=== PATIENT | female | born 1965 | race Asian ===

== ENCOUNTER 2018-07-31 08:09 | Emergency (ER) | payer BC ==
[~2018-07-31] VITALS: Ht 152.4 cm; Wt 81.6 kg
--- NOTE | 2018-07-31 10:00 | ED EENT ---
History of Present Illness General Chief Complaint: Facial Problems Stated Complaint: FACIAL NUMBNESS Nursing Triage Note: PT PRESENTS TO ED WITH COMPLAINTS OF R SIDE FACIAL NUMBNESS AND DROOPING SINCE LAST NIGHT. PT ALSO REPORTS SHE HAS HAD PAIN BEHIND HER R EAR INTERMITTENTLY X2 WEEKS. PT DENIES ANY OTHER S/S. Source: patient Exam Limitations: no limitations History of Present Illness Date Seen by Provider: Jul 31, 2018 Time Seen by Provider: 09:55 Initial Comments The patient is a 52-year-old female of descent. She reports that for about 2 weeks she has had pain in her right mastoid area. Last night she noted a funny sensation in the right side of her face and drooping. This morning this sensation is greater. She also reports that she wears contact lenses and has burning of her eyes. Timing/Duration: gradual Location: eye (R), facial (right sided) Allergies and Home Medications Allergies Coded Allergies: No Known Drug Allergies (Unverified , 07/31/18) Home Medications No Active Prescriptions or Reported Meds Patient Home Medication List Home Medication List Reviewed: Yes Review of Systems Review of Systems Constitutional: see HPI Eyes: Other (burning and tears) Nose: no symptoms reported Mouth: other (right side of face and mouth feels as if she had been to the dentist) Throat: no symptoms reported Respiratory: no symptoms reported Cardiovascular: no symptoms reported Musculoskeletal: no symptoms reported Skin: no symptoms reported Neurological: See HPI Hematologic/Lymphatic: No Symptoms Reported Immunological/Allergic: no symptoms reported Past Pbgtqqf-Sezpmr-Oufcyt Hx Patient Social History Alcohol Use: Denies Use Recreational Drug Use: No Smoking Status: Never a Smoker Recent Foreign Travel: No Contact w/Someone Who Travel: No Recent Infectious Disease Expo: No Recent Hopitalizations: No Physical Abuse: No Sexual Abuse: No Mistreated: No Fear: No Seasonal Allergies Seasonal Allergies: No Past Medical History Surgeries: Yes (R/L WRIST CARPAL TUNNEL) Respiratory: No Cardiac: No Neurological: No Genitourinary: No Gastrointestinal: No Musculoskeletal: No Endocrine: No HEENT: No Cancer: No Psychosocial: No Blood Disorders: No Physical Exam Vital Signs Vital Signs - First Documented 07/31/18 08:21 Temp 98.4 Pulse 112 Resp 18 B/P (MAP) 152/98 (116) Pulse Ox 97 Height, Weight, BMI Height: 5'" Weight: 180lbs. oz. 81.051279jq; BMI Method:Stated General Appearance: no apparent distress Nose: normal inspection Mouth/Throat: normal mouth inspection, pharynx normal, dental tenderness, excessive drooling, foreign body, mandibular swelling Cardiovascular: normal peripheral pulses, regular rate, rhythm, no edema, no gallop, no JVD, no murmur Respiratory: chest non-tender, lungs clear, normal breath sounds, no respiratory distress, no accessory muscle use There is effacement of the right nasolabial fold. When asked to smile there is no movement of the right corner of the mouth. When asked to furrow the brow is minimal furrowIng of the right brow. There is some tenderness to palpation over the right mastoid. The right eye is droopy although still appropriate relative to the pupil. She is unable to completely occlude the lids Progress/Results/Core Measures Results/Orders Vital Signs/I&O 07/31/18 08:21 Temp 98.4 Pulse 112 Resp 18 B/P (MAP) 152/98 (116) Pulse Ox 97 Blood Pressure Mean: 116 Departure Communication (Admissions) The usual issues of Rogel's palsy were described to the patient and her . She is advised to get gum cellulose eyedrops and to use an eye patch at bedtime. She will be given a shot of Solu-Medrol here and a prescription for steroids to fill tomorrow. Impression Primary Impression: right sided Rogel's palsy Disposition: 01 HOME, SELF-CARE Condition: Stable/Unchanged Departure-Patient Inst. Decision time for Depature: 10:00 Referrals: NO,LOCAL PHYSICIAN (PCP) Primary Care Physician Add. Discharge Instructions: All discharge instructions reviewed with patient and/or family. Voiced understanding. Obtain gum cellulose eyedrops and use at bedtime and when necessary. Fashion an eye patch for nighttime use. Take cortisone as prescribed. Follow-up with an outpatient provider in 10-14 days. Scripts Prednisone (Prednisone) 20 Mg Tab 20 MG PO each a.m., #10 TAB Prov: ANITA GUILLAUME MD 07/31/18 ANITA GUILLAUME MD Jul 31, 2018 10:00
[2018-07-31] MEDS ORDERED: PRD20T PO (10:03)
[2018-07-31] MEDS ORDERED: methylPREDNISolone 125 MG (Solu-MEDROL) VIAL IM ONE (10:15)
[2018-07-31 10:44] VITALS: BP 123/74
== END 2018-07-31 10:44 | disposition home or self-care (01) ==
LOC: ER 08:12
DX: G51.0 Bell's palsy (principal)
CPT/HCPCS: 99284

== ENCOUNTER 2022-07-15 00:09 | Emergency (ER) | payer OTHER ==
[~2022-07-15] VITALS: Ht 152.4 cm; Wt 89.0 kg
[~2022-07-15 00:09] MED LIST: PRD20T PO
[2022-07-15 01:00] LABS: TOTAL PROTEIN 7.2 GM/DL (6.4-8.2)
[2022-07-15 01:01] LABS: BILIRUBIN,TOTAL 0.6 MG/DL (0.1-1.0)
[2022-07-15 01:03] LABS: CREATININE SERUM 0.83 MG/DL (0.60-1.30)
[2022-07-15 01:06] LABS: MAGNESIUM 1.7 MG/DL (1.6-2.4)
[2022-07-15 01:14] LABS: CREATINE KINASE MB 1.9 NG/ML (<6.6)
[2022-07-15 01:18] LABS: FIBRIN DEGRADATION PRODUCTS 0.21 UG/ML (0.00-0.49); INR 0.9 (0.8-1.4); PROTHROMBIN TIME PATIENT 12.5 SEC (12.2-14.7)
[2022-07-15 01:19] LABS: ERYTHROCYTE SEDIMENTATION RATE 4 MM/HR (0-30)
[2022-07-15 01:27] LABS: TSH (THYROID ANALYZER) 3.79 UIU/ML (0.35-4.94)
[2022-07-15] MEDS ORDERED: hydrALAZINE (APESOLINE) 20 MG/ML VIAL IV ONE (01:30)
[2022-07-15 01:49] LABS: BASOPHILS # (AUTO) 0.1 10^3/uL (0.0-0.1); BASOPHILS % (AUTO) 1 % (0-10); EOSINOPHILS # (AUTO) 0.2 10^3/uL (0.0-0.3); EOSINOPHILS % (AUTO) 2 % (0-10); HEMATOCRIT 42 % (35-52); HEMOGLOBIN 13.5 g/dL (11.5-16.0); LYMPHOCYTES # (AUTO) 1.9 10^3/uL (1.0-4.0); LYMPHOCYTES % (AUTO) 20 % (12-44); MEAN CORPUSCULAR HEMOGLOBIN 28 pg (25-34); MEAN CORPUSCULAR HGB CONC 32 g/dL (32-36); MEAN CORPUSCULAR VOLUME 88 fL (80-99); MEAN PLATELET VOLUME 10.3 fL (9.0-12.2); MONOCYTES # (AUTO) 0.6 10^3/uL (0.0-1.0); MONOCYTES % (AUTO) 6 % (0-12); NEUTROPHILS # (AUTO) 6.8 10^3/uL (1.8-7.8); NEUTROPHILS % (AUTO) 71 % (42-75); PLATELET COUNT 295 10^3/uL (130-400); WHITE BLOOD COUNT 9.6 10^3/uL (4.3-11.0)
--- NOTE | 2022-07-15 01:55 | ED Neurological Problem ---
General Chief Complaint: Neurological Problems Stated Complaint: EARACHE,LT SIDE OF FACE PARALYZED Nursing Triage Note: Pt presents with L side facial palsey. She states that it started around 10:30 tonight. She noticed some weakness while eating and went to brush her teeth and noticed her mouth wasn't right. 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 Source: patient History of Present Illness Date Seen by Provider: Jul 15, 2022 Time Seen by Provider: 00:18 Initial Comments PT ARRIVES VIA POV FROM HOME C/O LEFT FACIAL DROOPING -NOTICED AT 2230 TONIGHT. SHE WAS EATING AND NOTICED SOME WEAKNESS TO THE LEFT SIDE OF HER FACE AND THE LEFT SIDE OF HER LIPS WERE TWITCHING, AND THEN WHEN SHE WAS BRUSHING HER TEETH SHE LOOKED IN THE MIRROR AND NOTICED DROOPING TO THE LEFT SIDE OF HER FACE. . HAS BEEN HAVING LEFT EAR PAIN X 2 DAYS. PAIN IS IN AND BEHIND AND BELOW LEFT EAR. NO CHANGE IN HEARING. NO DRAINAGE FROM THE EAR HAS BEEN HAVING "THROBBING HEADACHES" FOR THE LAST SEVERAL DAYS--HEADACHE IS GLOBAL. TOOK "ASPIRIN" TONIGHT FOR HEADACHE. NO NUMBNESS TO FACE NO DIFFICULTY TALKING OR SWALLOWING OR EATING. NO BITING OF TONGUE NO VISION CHANGES NO NEUROLOGICAL DEFICITS TO ANY OTHER PART OF BODY NO PAIN TO FACE ITSELF. NO DIZZINESS NO SYNCOPE NO FEVER OR RECENT ILLNESS PT HAS HAD ONGOING PROBLEMS WITH POSTERIOR NECK PAIN AND PAIN RADIATING DOWN HER LEFT ARM "FOR AWHILE NOW" THIS IS NOT PRESENT NOW, AND HAS NOT SOUGHT MEDICAL CARE FOR IT. HAS BEEN GETTING MASSAGE AND ACCUPUNCTURE AND IT HELPS PT HAS HAD ROGEL'S PALSY 4-5 YEARS AGO, AND CURRENT SYMPTOMS ARE THE SAME. PER OLD RECORDS, SHE WAS SEEN HERE 07/31/2018 AND WAS DX WITH RIGHT SIDED ROGEL'S PALSY SHE DOES NOT RECALL WHICH SIDE OF HER FACE WAS AFFECTED AT THAT TIME SHE STATES IT TOOK A FEW MONTHS FOR IT TO RESOLVE SHE STATES ACCUPUNCTURE HELPED ALOT WITH HER SYMPTOMS PT DENIES ANY MEDICAL PROBLEMS AND DOES NOT TAKE ANY DAILY MEDICATIONS. PCP: JAKE Allergies and Home Medications Allergies Coded Allergies: No Known Drug Allergies (Unverified , 07/31/18) Patient Home Medication List Prednisone (Prednisone) 20 Mg Tab, 20 MG PO each a.m. Prescribed by: ANITA GUILLAUME on 07/31/18 1003 Review of Systems Review of Systems Constitutional: no symptoms reported; No dizziness Eyes: No Symptoms Reported Ears, Nose, Mouth, Throat: see HPI; denies mouth pain, denies mouth swelling Respiratory: no symptoms reported Cardiovascular: no symptoms reported Gastrointestinal: no symptoms reported Genitourinary: no symptoms reported Musculoskeletal: see HPI Skin: no symptoms reported; No rash Psychiatric/Neurological: See HPI; Denies Cognitive Dysfunction; Headache Endocrine: No Symptoms Reported Hematologic/Lymphatic: No Symptoms Reported Past Qderduj-Ampsoz-Szvxil Hx Patient Social History Tobacco Use?: No Use of E-Cig and/or Vaping dev: No Substance use?: No Alcohol Use?: No Seasonal Allergies Seasonal Allergies: No Past Medical History Surgeries: Yes (R/L WRIST CARPAL TUNNEL) Orthopedic Respiratory: No Cardiac: No Neurological: Yes (RIGHT ROGEL'S PALSY 07/31/2018; ) Genitourinary: No Gastrointestinal: No Musculoskeletal: No Endocrine: No HEENT: No Cancer: No Psychosocial: No Integumentary: No Blood Disorders: No Physical Exam Vital Signs Vital Signs - First Documented 07/15/22 00:23 Temp 36.7 Pulse 97 Resp 16 B/P (MAP) 179/117 (137) Capillary Refill : Less Than 3 Seconds Height, Weight, BMI Height: 5'" Weight: 180lbs. oz. [id number]; 38.00 BMI Method:Stated General Appearance: WD/WN, no apparent distress, other (TALKATIVE AND SPEECH IS CLEAR) HEENT: PERRL/EOMI, TMs normal, pharynx normal, other (LEFT FACIAL DROOP/PARALYSIS. FOREHEAD IS INVOLVED. PT IS ABLE TO FULLY CLOSE LEFT EYE. NO TEARING OR WATERING OF THE EYES. TONGUE IS MIDLINE. PT DOES HAVE SENSATION TO FACE. NO POST AURICULAR TENDERNESS. NO RASH NOTED ANYWHERE. ) Neck: non-tender, full range of motion, supple, normal inspection Respiratory: normal breath sounds, no respiratory distress, no accessory muscle use Cardiovascular: regular rate, rhythm, no murmur Peripheral Pulses: 2+ Dorsalis Pedis (R), 2+ Left Dors-Pedis (L), 2+ Radial Pulses (R), 2+ Radial Pulses (L) Gastrointestinal: non tender, soft Back: normal inspection, no CVA tenderness, no vertebral tenderness Extremities: normal range of motion, non-tender, normal inspection, no pedal edema, no calf tenderness, normal capillary refill Neurologic/Psychiatric: alert, normal mood/affect, oriented x 3; No abnormal cerebellar tests; abnormal cleaner II-XII (LEFT FACIAL NERVE DISTRIBUTION--FACIAL DROOPING/PARALYSIS); No aphasia; facial droop; No sensory deficit Crainal Nerves: normal hearing, normal speech, PERRL Coordination/Gait: normal finger to nose, normal gait Motor/Sensory: no pronator drift Skin: normal color (PT IS ), warm/dry; No rash Stroke Onset of Symptoms Date of Onset of Symptoms: Jul 14, 2022 Time of Symptom Onset: 22:30 Onset of Symptoms: Yes NIH Stroke Scale Assessment Select: Initial Level of Consciousness: 0=Alert (0), Level of Consciousness- Questions: 0=Answers both month/age (0), LOC Commands: 0=Performs both tasks (0), Gaze: Normal (0), Visual [place]: 0=No visual loss (0), Facial Movement (Facial Paresis): 2=Partial paralysis (2), Motor Function-Arms Right: 0=No drift (0), Motor Function-Arms Left: 0=No drift (0), Motor Function-Legs Right: 0=No drift (0), Motor Function-Legs Left: 0=No drift (0), Limb Ataxia: 0=Absent (0), Sensory: 0=Normal:no loss (0), Best Language: 0=No aphasia (0), Dysarthria: 0=Normal (0), Extinction & Inattention: 0=No abnormality (0), Total: 2 Stroke Thrombolytic Exclusion Age 18 or Over: Yes Acute intenal hemorrhage: No History of CVA: No Uncontrolled Coagulation Defec: No Intracranial Hemorrhage: No Severe Hypertension: No GI or Bleed: No Subarachnoid Hemorrhage: No Intracranial Neoplasm/Aneurysm: No Oral Anticoagulants: No Surgery or Trauma: No Puncture of Non-Compressible V: No Recent CPR: No Diabetic Hemorrhagic Retinopat: No Organ Biopsy: No Recent Obstetric Delivery: No Glucose: No Significant Hepatic Dysfunctio: No NIH Stoke Scale >22: No Bacterial Endocarditis: No Pericarditis: No Improving Symptoms: No Platelets: No TPA Contraindication: No IV - TPa Received IV - TPa Procedure Performed?: No (FINDINGS CONSISTENT WITH ROGEL'S PALSY, NIH IS 2, AND NO VASCULAR OCCLUSION NOTED ON CT) Progress/Results/Core Measures Results/Orders Lab Results Laboratory Tests Test 07/15/22 00:54 07/15/22 01:30 Range/Units Glucometer 159 H 70-110 MG/DL White Blood Count 9.6 4.3-11.0 10^3/uL Red Blood Count 4.77 3.80-5.11 10^6/uL Hemoglobin 13.5 11.5-16.0 g/dL Hematocrit 42 35-52 % Mean Corpuscular Volume 88 80-99 fL Mean Corpuscular Hemoglobin 28 25-34 pg Mean Corpuscular Hemoglobin Concent 32 32-36 g/dL Red Cell Distribution Width 12.9 10.0-14.5 % Platelet Count 295 130-400 10^3/uL Mean Platelet Volume 10.3 9.0-12.2 fL Immature Granulocyte % (Auto) 1 % Neutrophils (%) (Auto) 71 42-75 % Lymphocytes (%) (Auto) 20 12-44 % Monocytes (%) (Auto) 6 0-12 % Eosinophils (%) (Auto) 2 0-10 % Basophils (%) (Auto) 1 0-10 % Neutrophils # (Auto) 6.8 1.8-7.8 10^3/uL Lymphocytes # (Auto) 1.9 1.0-4.0 10^3/uL Monocytes # (Auto) 0.6 0.0-1.0 10^3/uL Eosinophils # (Auto) 0.2 0.0-0.3 10^3/uL Basophils # (Auto) 0.1 0.0-0.1 10^3/uL Immature Granulocyte # (Auto) 0.1 0.0-0.1 10^3/uL Erythrocyte Sedimentation Rate 4 0-30 MM/HR Prothrombin Time 12.5 12.2-14.7 SEC INR Comment 0.9 0.8-1.4 Activated Partial Thromboplast Time 29 24-35 SEC D-Dimer 0.21 0.00-0.49 UG/ML Sodium Level 139 135-145 MMOL/L Potassium Level 4.3 3.6-5.0 MMOL/L Chloride Level 105 98-107 MMOL/L Carbon Dioxide Level 25 21-32 MMOL/L Anion Gap 9 5-14 MMOL/L Blood Urea Nitrogen 20 H 7-18 MG/DL Creatinine 0.83 0.60-1.30 MG/DL Estimat Glomerular Filtration Rate 84 BUN/Creatinine Ratio 24 Glucose Level 146 H 70-105 MG/DL Calcium Level 9.8 8.5-10.1 MG/DL Corrected Calcium 9.6 8.5-10.1 MG/DL Magnesium Level 1.7 1.6-2.4 MG/DL Total Bilirubin 0.6 0.1-1.0 MG/DL Aspartate Amino Transf (AST/SGOT) 17 5-34 U/L Alanine Aminotransferase (ALT/SGPT) 28 0-55 U/L Alkaline Phosphatase 93 40-136 U/L Total Creatine Kinase 89 29-168 U/L Creatine Kinase MB 1.9 <6.6 NG/ML Myoglobin 28.4 10.0-92.0 NG/ML C-Reactive Protein High Sensitivity 0.11 0.00-0.50 MG/DL Total Protein 7.2 6.4-8.2 GM/DL Albumin 4.2 3.2-4.5 GM/DL TSH [place] Testing 3.79 0.35-4.94 UIU/ML My Orders Orders - OG MONAHAN DO Accucheck Stat ONCE (07/15/22:19) Ed Iv/Invasive Line Start (07/15/22:) Ekg Tracing (07/15/22:) Monitor-Rhythm Ecg Trace Only (07/15/22:) Cbc With Automated Diff (07/15/22:) Comprehensive Metabolic Panel (07/15/22:) Creatine Kinase (07/15/22:) Creatine Kinase Mb (07/15/22:) Hs C Reactive Protein (07/15/22:) Magnesium (07/15/22:) Protime With Inr (07/15/22:) Partial Thromboplastin Time (07/15/22:) Thyroid Analyzer (07/15/22:) Erythrocyte Sedimentation Rate (07/15/22:) Myoglobin Serum (07/15/22:) Fibrin Degradation Products (07/15/22:) Chest 1 View, Ap/Pa Only (07/15/22:19) Nothing By Mouth (07/15/22 Breakfast) Vital Signs Stroke Patient Q15M (07/15/22 00:19) Intake & Output 06,14,22 (07/15/22 00:19) Dysphagia Screening Tool Q10MX1 (07/15/22 00:19) Ct Head/Maxillofacial Wo (07/15/22 00:19) Hydralazine Injection (Apresoline Inject (07/15/22 01:30) Ct Angio Head/Neck (07/15/22 01:29) Iohexol Injection (Omnipaque 350 Mg/Ml 1 (07/15/22 02:15) Sodium Chloride Flush (Catheter Flush Sy (07/15/22 02:15) Ns (Ivpb) (Sodium Chloride 0.9% Ivpb Bag (07/15/22 02:15) Methylprednisolone Sod Succ (Solu-Medrol (07/15/22 02:45) Metoprolol Tartrate Injection (Lopressor (07/15/22 02:45) Metoprolol Succinate (Xl) Tab (Toprol Xl (07/15/22 02:45) Acyclovir Capsule/Tablet (Zovirax Caps (07/15/22 02:45) Medications Given in ED Current Medications Medications Dose Ordered Sig/Sara Route Start Time Stop Time Status Last Admin Dose Admin Hydralazine HCl 10 mg ONCE ONCE IV 07/15/22 01:30 07/15/22 01:31 DC 07/15/22 01:33 10 MG Iohexol 100 ml ONCE ONCE IV 07/15/22 02:15 07/15/22 02:16 DC 07/15/22 02:15 75 ML Methylprednisolone Sodium Succinate 125 mg ONCE ONCE IVP 07/15/22 02:45 07/15/22 02:46 DC 07/15/22 03:01 125 MG Metoprolol Tartrate 5 mg ONCE ONCE IV 07/15/22 02:45 07/15/22 02:46 DC 07/15/22 03:02 5 MG Sodium Chloride 10 ml NEEDED PRN IV 07/15/22 02:15 07/15/22 02:15 10 ML Sodium Chloride 100 ml ONCE ONCE IV 07/15/22 02:15 07/15/22 02:16 DC 07/15/22 02:15 80 ML Vital Signs/I&O 07/15/22 00:23 Temp 36.7 Pulse 97 Resp 16 B/P (MAP) 179/117 (137) Blood Pressure Mean: 137 [facility]SB[facility] Bedside Testing Finger Stick Blood Glucose: 159 Blood Glucose Action Taken: DR NOTIFIED Progress Progress Note : Progress Note NOTE TIME CHANGE FROM DAYLIGHT SAVINGS TIME DURING PT'S ER STAY. GIVEN HYDRALAZINE FOR ELEVATED BLOOD PRESSURE. NO DETERIORATION IN PT'S CONDITION DURING ER STAY Initial ECG Impression Date: Jul 15, 2022 Initial ECG Impression Time: 00:53 Initial ECG Rate: 96 Initial ECG Rhythm: Normal Sinus Initial ECG Impression: Nonspecific Changes Diagnostic Imaging Comments CXR--NO ACUTE PROCESS, PENDING RADIOLOGIST REVIEW Reviewed: Reviewed by Me, Discussed w/Radiologist Departure Impression Primary Impression: Left-sided Rogel's palsy Additional Impression: NEW DX OF HYPERTENSION Disposition: HOME, SELF-CARE Condition: Stable Departure-Patient Inst. Decision time for Depature: 03:10 [address]: [facility] (PCP/Family) Primary Care Physician Patient Instructions: Rogel's Palsy (DC), DASH Diet, High Blood Pressure (DC) Add. Discharge Instructions: HOME, REST SLOW POSITION CHANGES FOLLOW UP WITH YOUR DR IN 1-2 DAYS FOR FURTHER CARE RETURN TO ER IF SYMPTOMS WORSEN All discharge instructions reviewed with patient and/or family. Voiced understanding. Scripts Valacyclovir HCl (Valtrex) 1,000 Mg Tablet 1000 MG PO TID, #21 TAB Prov: OG MONAHAN DO 07/15/22 Metoprolol Succinate (Toprol Xl) 50 Mg Tab.er.24h 50 MG PO DAILY, #10 TAB Prov: OG MONAHAN DO 07/15/22 Prednisone (Prednisone) 20 Mg Tab 40 MG PO DAILY, #6 TAB 0 Refills Prov: OG MONAHAN DO 07/15/22 OG MONAHAN DO Jul 15, 2022 01:55
[2022-07-15 01:57] LABS: ALBUMIN 4.2 GM/DL (3.2-4.5); POTASSIUM 4.3 MMOL/L (3.6-5.0)
[2022-07-15 01:58] LABS: CALCIUM 9.8 MG/DL (8.5-10.1)
[2022-07-15] MEDS ORDERED: CATHETER FLUSH 10 ML SYR IV PRN (02:15)
[2022-07-15] MEDS ORDERED: IOHEXOL 350 MG/ML 100 ML (OMNIPAQUE 350) VIAL IV ONE (02:15)
[2022-07-15] MEDS ORDERED: NS 100 ML (IVPB) BAG IV ONE (02:15)
[2022-07-15] MEDS ORDERED: meTOproloL SUCCINATE 50 MG (TOPROL XL) TAB PO SCH (02:45)
[2022-07-15] MEDS ORDERED: ACYCLOVIR 400 MG TABLET (ZOVIRAX) PO SCH (02:45)
[2022-07-15] MEDS ORDERED: methylPREDNISolone 125 MG (Solu-MEDROL) VIAL IVP ONE (02:45)
[2022-07-15] MEDS ORDERED: meTOprolol 5 MG/5 ML (LOPRESSOR) VIAL IV ONE (02:45)
[2022-07-15] MEDS ORDERED: METO-352 PO (03:14)
[2022-07-15] MEDS ORDERED: PRD20T PO (03:14)
[2022-07-15] MEDS ORDERED: VALA10004 PO (03:14)
[2022-07-15 03:29] VITALS: BP 159/92
--- NOTE | 2022-07-15 05:51 | Diagnostic Imaging Report ---
CLINICAL INDICATION: Patient with left-sided facial palsy. EXAM: Portable chest x-ray upright view. COMPARISON: None. FINDINGS: Lungs/pleura: Lungs are clear. There is no pneumothorax. There is no pleural effusion. Mediastinum: Unremarkable. Pulmonary vasculature: Unremarkable. Heart: Unremarkable. Bones/extrathoracic soft tissue: There are small degenerative spurs involving the thoracic spine. IMPRESSION: There is no radiographic evidence of acute cardiopulmonary process. Dictated by: Dictated on workstation # [id number]
--- NOTE | 2022-07-15 07:02 | Diagnostic Imaging Report ---
PROCEDURE: CT head and maxillofacial without contrast. TECHNIQUE: Multiple contiguous axial images were obtained through the head and facial bones without the use of intravenous contrast. Auto Exposure Controls were utilized during the CT exam to meet ALARA standards for radiation dose reduction. INDICATION: Left-sided facial palsy. COMPARISON: None available. FINDINGS: Head: No intracranial hyperdense hemorrhage or space-occupying mass. No hydrocephalus or midline shift. Ahrrell-white matter differentiation is well-preserved. Basilar cisterns are widely patent. No skull fracture. No destructive lesion within the skull base. No mastoiditis. Middle ear cavities are clear. Face: No fracture in the mid face or mandible. Paranasal sinuses are clear. Orbits are normal. No mass at the level of the skull base. IMPRESSION: 1. No acute intracranial hemorrhage or features of large territorial infarct. 2. No abnormality of the midface to account for patient's symptoms. 3. Findings are in agreement with the preliminary report. Dictated by: Dictated on workstation # [id number]
--- NOTE | 2022-07-15 07:07 | Diagnostic Imaging Report ---
Clinical Indication: Patient with left-sided facial palsy which started around 10:30 tonight. Patient noticed weakness while eating and went to brush her teeth and noticed mouth was not right. Patient's history of Rogel's palsy approximately 45 days ago with similar symptoms. Exams: 1: Head CT with and without IV contrast. Auto Exposure Controls were utilized during the CT exam to meet ALARA standards for radiation dose reduction. 2: CT angiogram of the head and neck performed with 100 cc of Omnipaque 350 IV contrast. Sagittal and coronal MIP reformations were created for better visualization of vascular anatomy. CT angiogram was post-processed using RAPID LVO detection to include quantitative measurements of cerebral blood flow and automated results notification to the stroke and/or neurointerventional team. Comparison: CT scan of the maxillofacial structures dated 07/15/2022.. Findings: Head CT: There is no evidence of acute cerebral infarct, intracranial hemorrhage, or gross mass effect. There is no abnormal IV contrast enhancement. The brain parenchymal volume appears appropriate for patient's age. There is normal murray-white matter distinction. There is no significant midline shift or herniation. There is no evidence of hydrocephalus. The basal cisterns are unremarkable. The skull, extracranial soft tissue, and orbits are unremarkable. The paranasal sinuses are unremarkable. Temporal bones show no significant abnormality. CT Angiogram: There is dense contrast bolus seen within left subclavian vein and innominate vein and superior vena cava. Three-vessel aortic arch is seen. The brachiocephalic artery and bilateral subclavian artery is patent. Tortuous right common carotid artery is seen. The bilateral common carotid arteries, bilateral ECA, and bilateral cervical ICA is patent. The petrous, cavernous, and supraclinoid ICA are unremarkable. The bilateral ACAs and distal branches and bilateral MCAs and distal branches are patent. The bilateral cervical vertebral arteries are patent. The bilateral intradural vertebral arteries are patent. Right PICA and left ICA/PICA is noted. The basilar artery, bilateral superior cerebellar artery, and bilateral digital pre press operator are patent. Dural venous sinuses are patent. The neck soft tissue structures show no significant abnormality. Visualized upper lung drew show mild atelectasis. There are cervical spine vertebral body spurs. IMPRESSION: 1: Unremarkable CT scan of the brain. 2: CT angiogram of the [place] of [place] and neck shows no significant stenosis, vascular malformation, aneurysm, or dissection. I agree with stat rad report Dictated by: Dictated on workstation # [id number]
== END 2022-07-15 03:25 | disposition home or self-care (01) ==
LOC: EDUNIT# 00:09 → ER 00:14
DX: G51.0 Bell's palsy (principal); I10 Essential (primary) hypertension
CPT/HCPCS: 36415; 70450; 70486; 70496; 70498; 71045; 80053; 82550; 82553; 82947; 83735; 83874; 84443; 85025; 85379; 85610; 85652; 85730; 86141; 93005; 93041